=== PATIENT | male | born 1990 | race Caucasian/White ===

== ENCOUNTER 2023-08-31 22:07 | Emergency (ER) | payer OTHER, BC ==
[~2023-08-31] VITALS: Ht 180.3 cm; Wt 95.5 kg
[~2023-08-31 22:07] MED LIST: AUGMENTIN 875-1 EACH PO
[2023-08-31] MEDS ORDERED: CIPROFLOXACIN 500 MG TAB PO ONE (22:15)
[2023-08-31 22:31] VITALS: BP 111/72
== END 2023-08-31 22:32 | disposition home or self-care (01) ==
LOC: ED 22:07
DX: Z20.811 Contact with and (suspected) exposure to meningococcus (principal); Z91.030 Bee allergy status

== ENCOUNTER 2023-09-16 00:21 | Emergency (ER) | payer OTHER, BC ==
[~2023-09-16] VITALS: Ht 180.3 cm; Wt 97.8 kg
--- OUTSIDE RECORDS SUMMARY | 2023-09-16 00:23 | XMS ---
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 Apryl VISIT COUNT (12 MO.) 2 [facility] TOTAL 2 NOTE: Visits indicate total known visits. ED/UCC VISIT TRACKING (12 MO.) 09/16/2023 00:22 [facility] TYPE: Emergency COMPLAINT: - LT HAND INJURY 08/31/2023 22:08 [facility] TYPE: Emergency COMPLAINT: - EXPOSURE DIAGNOSES: - Bee allergy status - Contact with and (suspected) exposure to meningococcus - Contact with and (suspected) exposure to other bacterial communicable diseases INPATIENT VISIT TRACKING (12 MO.) No inpatient visits to display in this time frame [email or web address]
[2023-09-16] MEDS ORDERED: KETOROLAC TROMETHAMINE 60 MG/2 ML VIAL IM ONE (00:30)
[2023-09-16] MEDS ORDERED: TRAMADOL HCL50 MG PO (00:53)
[2023-09-16 01:21] VITALS: BP 129/84
== END 2023-09-16 01:35 | disposition home or self-care (01) ==
LOC: ED 00:21
DX: S62.337A Displaced fracture of neck of fifth metacarpal bone, left hand, initial encounter for closed fracture (principal); Y04.0XXA Assault by unarmed brawl or fight, initial encounter; Z91.030 Bee allergy status
CPT/HCPCS: 73130